=== PATIENT | male | born 1950 | race Caucasian/White ===

== ENCOUNTER 2017-12-08 06:02 | Day surgery (SDC) | payer BC, OTHER ==
[~2017-12-08] VITALS: Ht 175.3 cm; Wt 120.6 kg
[~2017-12-08 06:02] MED LIST: ACID REDUCER 1150 MG PO; BASAGLAR K100 UNIT/1 SC; ELIQUIS5 MG PO; FLOMAX0.4 MG PO; GLUCOPHAGE1000 MG PO; GLUCOTROL5 MG PO; LIPITOR40 MG PO; TOPROL XL50 MG PO; VICTOZA 2-0.6 MG/0.1 SC
[2017-12-08 07:01] VITALS: BP 129/67
[2017-12-08 10:40] VITALS: BP 161/70
[2017-12-08 11:30] VITALS: BP 164/72
[2017-12-08 13:00] VITALS: BP 140/63
== END 2017-12-08 13:03 | disposition home or self-care (01) ==
LOC: SDC 06:02
PROVIDERS: Urology
DX: N20.0 Calculus of kidney (principal); I10 Essential (primary) hypertension; K21.9 Gastro-esophageal reflux disease without esophagitis; E11.9 Type 2 diabetes mellitus without complications; I48.91 Unspecified atrial fibrillation; N40.1 Benign prostatic hyperplasia with lower urinary tract symptoms; N13.8 Other obstructive and reflux uropathy; Z87.891 Personal history of nicotine dependence; Z79.01 Long term (current) use of anticoagulants
CPT/HCPCS: 74420; 82365 90; 82948; C1726; C1894; C2625; J0330; J0690; J2405; J3010

== ENCOUNTER 2018-03-19 22:45 | Inpatient (IN) | payer BC, OTHER ==
[~2018-03-19] VITALS: Ht 175.3 cm; Wt 121.2 kg
[~2018-03-19 22:45] MED LIST changes: -BASAGLAR K100 UNIT/1 SC; +LANTUS 10100 UNITS/ SC
[2018-03-20 06:00] VITALS: BP 142/67
[2018-03-20 10:40] VITALS: BP 156/67
[2018-03-20 15:28] VITALS: BP 122/60
[2018-03-20 19:50] VITALS: BP 114/55
[2018-03-21 00:30] VITALS: BP 144/66
[2018-03-21 06:25] LABS: HEMATOCRIT 33.5 % (38.0-50.0); MCV 90.5 FL (86-99)
[2018-03-21 06:46] LABS: CHLORIDE 106 MEQ/L (99-109); CREATININE 0.8 MG/DL (0.6-1.3); GFR ESTIMATE (CALCULATED) > 59 mL/min/ (58.99-99999); GLUCOSE 102 mg/dL (70-99); SODIUM 142 MEQ/L (136-147); UREA NITROGEN (BUN) 23 mg/dL (9-23)
[2018-03-21 07:50] VITALS: BP 128/76
[2018-03-21 11:27] VITALS: BP 167/75
[2018-03-21 15:42] VITALS: BP 158/70
[2018-03-21 20:07] VITALS: BP 139/65
[2018-03-22 00:15] VITALS: BP 154/76
[2018-03-22 03:30] VITALS: BP 134/62
[2018-03-22 08:00] VITALS: BP 118/58
[2018-03-22] MEDS ORDERED: SENNA PLUS TAB1 EACH PO (09:52)
[2018-03-22] MEDS ORDERED: Salonpas 4% Patch TD (09:52)
[2018-03-22] MEDS ORDERED: GABAPENTIN100 MG PO (09:53)
[2018-03-22] MEDS ORDERED: OXYCODONE HCL5 MG PO (09:53)
[2018-03-22] MEDS ORDERED: ELIQUIS2.5 MG PO (09:53)
[2018-03-22 12:01] VITALS: BP 129/60
== END 2018-03-22 15:00 | DRG 470 ==
LOC: ENRESERV 22:45 → 2SOUTH 03-20 05:35 → 3WEST 03-20 05:35 → 2SOUTH 03-20 10:50 → 3WEST 03-22 15:00
PROVIDERS: Orthopaedic Surgery; Physician Assistant
PROC: 0SRD0J9 Replacement of Left Knee Joint with Synthetic Substitute, Cemented, Open Approach (ICD-10-PCS; principal; 2018-03-20)
DX: M17.12 Unilateral primary osteoarthritis, left knee (principal); E11.9 Type 2 diabetes mellitus without complications; K21.9 Gastro-esophageal reflux disease without esophagitis; I48.91 Unspecified atrial fibrillation
CPT/HCPCS: 80048; 82948; 85014; 85018; C1713; J0690; J1100; J1170; J1815; J1885; J2250; J2405; J2795; J3010; J7050; J7120; S0020